=== PATIENT | male | born 1955 | race Caucasian/White ===

== ENCOUNTER → 2018-01-20 | Outpatient (CLI) | payer OTHER ==
[~2018-01-20] VITALS: Ht 157.5 cm; Wt 47.6 kg
[~2018-01-20] MED LIST: ACETAMINOPHEN500 M1 PO; CALCIUM 600 +1 EAC1 PO; CLARITIN10 MG PO; COLACE100 MG PO; EAR WAX DROPS15 ML OTIC; FLOVENT HFA 4444 MCG INH; LOXAPINE5 MG PO; MAXZIDE-25 MG1 EACH PO; MINERIN LOTION473 ML TOP; MIRALAX17 GM PO; OMEPRAZOLE40 MG PO; SINGULAIR 10 MG10 M1 PO; VENTOLIN HFA 1818 GM INH; VITAMIN D-32000 UNIT PO
--- NOTE | ~2018-01-20 | P ---
[facility] [place] [address] PROCEDURE REPORT Name: SHO CACERES Room #: REG [facility]#: [id number] Admission: 01/20/18 Attend Phys: Job Charles MD Discharge: Date of : 57 Report #: [id number] THIS REPORT FOR: //name// CC: [place] Charles DATE OF SERVICE: 01/20/2018 The patient is a 62-year-old male for average risk screening colonoscopy. PREOPERATIVE DIAGNOSIS: Average risk screening colonoscopy. POSTOPERATIVE DIAGNOSES: 1. Colon polyps x 3. 2. Megacolon. MEDICATIONS: Deep sedation with propofol per anesthesia. SPECIMENS: 1. Polyp, proximal ascending colon. 2. Polyp at 30 cm. 3. Rectal polyp. ESTIMATED BLOOD LOSS: 3 mL. PROCEDURE: Colonoscopy to cecum and terminal ileum with snare polypectomy and biopsy. FINDINGS: Prior to propofol sedation, procedure of colonoscopy was discussed with the patient as well as potential risks and its complications. He indicates he understands and desires to proceed. With the patient in lateral decubitus position, digital examination was completed, which revealed no abnormalities. Subsequently, the drchrono video colonoscope was introduced in the rectum, advanced under direct vision to the cecum. Done with minimal difficulty. The cecum was identified by the ileocecal valve and the appendiceal orifice. I was able to examine the distal segment of terminal ileum, which was inspected and noted to be unremarkable. At that point, the scope was slowly withdrawn and careful circumferential views were obtained. It is noted that the patient has had a history of megacolon with previous segmental colectomy with Dr. Maninder Cohen in 2002. The remaining colon was massively dilated. However, the mucosa was intact and was within normal limits. As we withdrew the scope, a diminutive polyp was seen in the proximal ascending colon and removed with the biopsy forceps. At 30 cm, a flat, slightly nodular 6 mm polyp was seen and removed mostly with snare polypectomy, a tiny [facility] [address] [place] [address] PROCEDURE REPORT Name: SHO CACERES Room #: REG [facility].#: [id number] Admission: 01/20/18 Attend Phys: Job Charles MD Discharge: Date of : 57 Report #: [id number] fragment remained which was removed with a biopsy forceps. The scope was further withdrawn and in the distal rectum, a diminutive polyp was seen and removed by biopsy. Upon retroflexion, no abnormalities were seen. The scope was withdrawn. The patient tolerated the procedure well. CONDITION OF THE PATIENT UPON DISCHARGE: Following procedure, the patient was drowsy, arousable and conversant and will be discharged home when fully ambulatory. INSTRUCTIONS TO THE PATIENT AND FAMILY AT THE TIME OF DISCHARGE: We will follow up on the path report and make further recommendations. If all three of these polyps are adenomas, he should return in 3 years; if only 1 or 2 adenomas, he should return in 5 years; if none are adenomas, then 10 years would be indicated. He should continue his bowel program for his megacolon. Last colonoscopy was 12 years ago. Withdrawal time from the cecum was 11 minutes 56 seconds. By: 0845 [id number] Job Charles MD /nt
--- NOTE | ~2018-01-20 | PATH ---
[facility] [address] [place] [address] PATHOLOGY RPT PROCEDURE Name: SMOOTH CACERES Room #: REG [facility] MKim.#: [id number] Admission: 01/20/18 Date of : 57 Discharge: Report #: [id number] Path Case #: [id number] [facility] Accession Number: [id number] . 01 Material submitted: . PART A: BX OF POLYP AT PROX ASCENDING PART B: POLYP AT 30 CM PART C: BX OF RECTAL POLYP . 01 Clinical history: . Colon polyps, patrice colon . 02 Diagnosis: A. Polyp, at proximal ascending, endoscopic biopsy: - Minute tubular adenoma. - Negative for high grade dysplasia. . B. Polyp, at 30 cm, endoscopic biopsy: - Hyperplastic polyp. - Negative for dysplasia. . C. Polyp, rectal polyp, endoscopic biopsy: - Hyperplastic polyp. - Negative for dysplasia. (IUV/db; 01/23/18) LBQ/01/23/2018 . 02 Electronically signed: . Erin Lee MD, Pathologist NPI- [id number] . 01 Gross description: . A. Received in formalin labeled "Smooth Caceres, BX of polyp at proximal ascending," is a single segment of waterman soft tissue measuring 0.3 cm in maximum dimension. The specimen is entirely submitted in cassette A1. . B. Received in formalin labeled "Smooth Caceres, polyp at 30 cm," is a 0.6 x 0.5 x 0.4 cm polypoid piece of waterman soft tissue. The margin is inked and the specimen is sectioned perpendicular to the margin and entirely submitted in cassette B1. Additionally received in the same container is a single segment of waterman soft tissue measuring 0.3 cm in maximum dimension. The specimen is submitted entirely in cassette B1. . C. Received in formalin labeled "Smooth Caceres, BX of rectal polyp," is a single segment of waterman soft tissue measuring 0.3 cm in maximum dimension. The specimen is entirely submitted [place] [address] PATHOLOGY RPT PROCEDURE Name: SMOOTH CACERES Justus [id number] Admission: 01/20/18 Date of : 57 Discharge: Report #: [id number] Path Case #: [id number] (TSD; 01/20/2018) TOB/TOB . 02 Pathologist provided ICD-10: D12.2, K63.5, K62.1 . 02 CPT . 838232, 046973, 938355 Performed at: [address], [place] [id number] MD Ike Cotto MD Phone: [phone] Performed at: [address] [id number] MD Erin Lee MD Phone: [phone]
== END | disposition home or self-care (01) ==
LOC: GI 09-23 10:55
DX: Z12.11 Encounter for screening for malignant neoplasm of colon (principal); D12.2 Benign neoplasm of ascending colon; K63.5 Polyp of colon; K62.1 Rectal polyp; K59.39 Other megacolon; I10 Essential (primary) hypertension; J45.909 Unspecified asthma, uncomplicated; K21.9 Gastro-esophageal reflux disease without esophagitis; M81.0 Age-related osteoporosis without current pathological fracture; Z98.890 Other specified postprocedural states; Z79.899 Other long term (current) drug therapy; Z98.0 Intestinal bypass and anastomosis status
CPT/HCPCS: 62110; 62900